=== PATIENT | male | born 1975 ===

== ENCOUNTER 2025-04-27 21:04 | Emergency (ER) | payer OTHER, SELFPAY ==
[2025-04-27 21:06] VITALS: BP 176/110
--- NOTE | 2025-04-27 23:11 | ED.GENMED ---
History of Present Illness
General
Chief Complaint: Musculo-Skeletal Complaint
Source: patient
Exam Limitations: none
Time Seen by Provider: 04/27/25 22:39
Nursing documentation reviewed up to this point in time: agreed with
History of Present Illness
History of Present Illness:
SEE mdm
Past History
Past History
ED Past Medical History: Psychiatric
ED Past Surgical History: Cholecystectomy and Orthopedic
Social History
Tobacco: Smoker
Review of Systems
Review of Systems
Allergies reviewed?: Yes
All Other Systems: Not applicable
Phy Exam
Physical Exam
Physical Exam:
GENERAL: Alert , in no apparent distress, comfortable at rest
HEAD: NCAT
CV: cap refill intact
pulses intact
NEUROLOGICAL: Alert and oriented, no focal neuro deficits, , 5/5 strength, sensation intact,
SKIN: Warm and dry, mild redness L index finger DIP joint
MUSCULOSKELETAL: L index finger slightly swollen DIP region
nail plate normal
mod tenderness
full extension intact
flexion 30 degrees
fat pad soft
otherwise normal hand
PSYCH: Normal and appropriate interaction.
Course
Orders/Labs/Results
Orders:
Orders
04/27/25 21:11
Finger(s)/Thumb 2 View Lt [CR Finger(s)/thumb Min 2 Vw Lt] Urgent
Comment:
Reason For Exam: injury
Vital Signs
Initial and Last Documented VS:
Initial Vital Signs
Temp Pulse Resp BP Pulse Ox
36.6 C 74 14 176/110 98
04/27/25 21:06 04/27/25 21:06 04/27/25 21:06 04/27/25 21:06 04/27/25 21:06
Last Documented Vital Signs
Temp Pulse Resp BP Pulse Ox
36.6 C 74 14 176/110 98
04/27/25 21:06 04/27/25 21:06 04/27/25 21:06 04/27/25 21:06 04/27/25 23:15
MDM/Problems Addressed
Differential Diagnosis Includes:
see MDM
MDM/Problems Addressed:
Note:
CHIEF COMPLAINT(S)
Crush injury to the finger.
HISTORY OF PRESENT ILLNESS
The patient is 50 y/o male who presented with a crush injury to his lft index finger that occurred today, approximately two to three hours prior to the visit. The injury was sustained at work during a painting job when a table fell on his finger.
He reports swelling and bruising, but no significant pain at the moment. The patient is able to bend and straighten the finger, iThe patient has been applying ice since the injury occurred. He expressed concern about documenting the injury for
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
PHYSICAL EXAM
see above
PLAN
- Provide a finger splint to protect the injured area.
- Instruct the patient to continue applying ice.
- Excuse from work duties for two days or until cleared by workers compensation.
- Provide documentation for work-related injury.
DIFFERENTIAL DIAGNOSIS
The Differential Diagnosis includes, in no particular order and is not limited to:
1. Finger contusion
2. Finger fracture
3. Tendon injury
4. Ligament sprain
5. Joint dislocation
6. Nail bed injury
7. Subungual hematoma
8. Soft tissue injury
9. Infection or cellulitis
10. Vascular injury
50-year-old [id number] male with left index finger injury when a table fell onto it. Patient says he was paining and moved a piece of furniture and it fell. He had gloves on at the time. He has tenderness to his fingertip with mild
swelling and bruising. The nail plate is intact and there is no lacerations. X-rays independently reviewed by me are negative for fracture or dislocation. Patient's finger was splinted, RICE recommended
Workmen's Comp. for return to work as needed
*Pulse Oximetry
SaO2: 98
Oxygen Mode of Delivery: Room air
Patient hypoxic: no (98)
*Critical Care Note
Total Time (30-74mins, 75-104mins- exclusive of procedures): Not Applicable
ED Attending Note
-
Portions of this chart may have been created with voice recognition software.� Occasional wrong word or��sound alike� substitutions may have occurred due to the inherent limitations of voice recognition software.
Discharge Plan
Departure
Patient Disposition: Home (Routine Discharge)
Date of Disposition: 04/27/25
Time of Disposition: 23:16
Patient with high blood pressure during this ER visit?: Yes
Condition: Fair
Covid-19: Not Applicable
Discharge Problem:
Contusion of finger
Instructions: Contusion (DC), BLOOD PRESSURE
Stand Alone Forms: Return to Work
Activity Restrictions/Additional Instructions:
Your finger x-ray looks normal. The radiologist will also review this by tomorrow and we will call you if there is any discrepancy. Wear the splint for 2 to 3 days to help it heal. Ice off-and-on. Take Tylenol or ibuprofen for pain. You are
excused from work for 2 to 3 days. If you are still having pain after that you need to be cleared by Workmen's Comp.
Return for any concerns
Interventions
Interventions:
*Risk Screen - Suicide Last Done: 04/27/25 21:06
*General Assessment Last Done: 04/27/25 21:06
*Neglect/Abuse Screening Last Done: 04/27/25 21:06
*ED COVID-19 Vaccine History Last Done: 04/27/25 21:06
*ED Influenza Vaccine History Last Done: 04/27/25 21:06
*Nursing Disposition Last Done: 04/28/25 00:36
ED-Musculoskeletal Assessment Last Done: 04/27/25 22:52
Discharge Date and Time
Discharge Date/Time: 04/28/25 00:37
Print Language: ITALIAN
== END 2025-04-28 00:37 | disposition home or self-care (01) ==
LOC: EMR 21:04
PROVIDERS: EMERGENCY PHYSICIAN Student in an Organized Health Care Education/Training Program
DX: S60.022A Contusion of left index finger without damage to nail, initial encounter (principal); W20.8XXA Other cause of strike by thrown, projected or falling object, initial encounter; Y93.89 Activity, other specified; Y99.0 Civilian activity done for income or pay
CPT/HCPCS: 29130; 99283; 73140